=== PATIENT | female | born 1955 | race Asian ===

== ENCOUNTER 2017-11-30 09:37 | Emergency (ER) | payer BC, OTHER ==
[~2017-11-30] VITALS: Ht 152.4 cm; Wt 72.6 kg
[~2017-11-30 09:37] MED LIST: ASA81EC PO; CARBAMAZEPINE200 MG PO; CLONIDINE HCL0.1 MG PO; GLUMETZA500 MG PO; HCT25T PO; HDRL25T PO; HYDRALAZINE HCL50 MG PO; LOSARTAN POTAS100 MG PO; LOVASTATIN40 MG PO; NIFEDICAL XL30 MG PO; OLANZAPINE5 MG PO; PEPCID20 MG PO; TRANDATE100 MG PO; VENLAFAXINE HCL75 M1 PO
[2017-11-30 13:03] VITALS: BP 139/66
== END 2017-11-30 12:35 | disposition home or self-care (01) ==
LOC: FSED 09:37
DX: R06.00 Dyspnea, unspecified (principal); E11.65 Type 2 diabetes mellitus with hyperglycemia; I10 Essential (primary) hypertension; F20.9 Schizophrenia, unspecified; K21.9 Gastro-esophageal reflux disease without esophagitis; J45.909 Unspecified asthma, uncomplicated
CPT/HCPCS: 71046; 80053; 82553; 84484; 85025; 99284

== ENCOUNTER 2020-12-13 15:56 | Inpatient (IN) | payer MEDICARE, OTHER ==
[~2020-12-13] VITALS: Ht 152.4 cm; Wt 73.9 kg
[2020-12-13] MEDS ORDERED: SODIUM CHLORIDE 0.9% 1000ML 1,000 ML IV STA (16:21)
[2020-12-13] MEDS ORDERED: ONDANSETRON HCL INJ 2MG/ML 2ML 2 MG/ML VIAL IV STA (16:21)
[2020-12-13] MEDS ORDERED: MECLIZINE HCL 12.5 MG TAB PO ONE (16:30)
[2020-12-13 16:41] LABS: BASOPHILS % 0.6 % (0.0-1.0); EOSINOPHILS # (AUTO) 0.1 (0.0-0.4); EOSINOPHILS % 1.1 % (0.0-6.0); HEMATOCRIT 33.6 % (34.2-44.1); HEMOGLOBIN 12.3 g/dL (12.0-16.0); LYMPHOCYTES # (AUTO) 1.5 (1.0-3.2); LYMPHOCYTES % 27.2 % (18.0-39.1); MEAN CORPUSCULAR HEMOGLOBIN 31.9 pg (28-32); MEAN CORPUSCULAR HGB CONC 36.6 g/dL (31-35); MEAN CORPUSCULAR VOLUME 87.3 fL (81-99); MONOCYTES # (AUTO) 0.3 (0.2-0.8); MONOCYTES % 5.8 % (4.4-11.3); NEUTROPHILS # (AUTO) 3.5 (2.1-6.9); NEUTROPHILS % 64.9 % (38.7-80.0); PLATELET COUNT 216 x10e3/uL (140-360); RED BLOOD COUNT 3.85 x10e6/uL (3.6-5.1); RED CELL DISTRIBUTION WIDTH 11.7 % (11.7-14.4)
[2020-12-13 16:59] LABS: ALANINE AMINOTRANSFERASE 22 IU/L (0-55); ALBUMIN 4.5 g/dL (3.5-5.0); ALBUMIN/GLOBULIN RATIO 1.5 (0.8-2.0); ALKALINE PHOSPHATASE 49 IU/L (40-150); ANION GAP 15.8 mmol/L (8-16); BLOOD UREA NITROGEN 6 mg/dL (7-26); BUN/CREATININE RATIO 9 (6-25); CALCIUM 9.6 mg/dL (8.4-10.2); CARBON DIOXIDE 26 mmol/L (22-29); CHLORIDE 85 mmol/L (98-107); CREATINE KINASE 140 IU/L (29-168); CREATININE, SERUM 0.66 mg/dL (0.57-1.11); EST GLOMERULAR FILTRATION RATE > 60 ML/MIN (60-); GLUCOSE 113 mg/dL (74-118); POTASSIUM 3.8 mmol/L (3.5-5.1); SODIUM 123 mmol/L (136-145)
[2020-12-13 18:22] LABS: CLARITY,URINE SL CLOUDY (CLEAR); COLOR,URINE YELLOW (YELLOW); LEUKOCYTE ESTERASE ,URINE NEGATIVE (NEGATIVE); NITRITE,URINE NEGATIVE (NEGATIVE)
[2020-12-13 18:23] LABS: KETONES,URINE TRACE (NEGATIVE); PROTEIN,URINE DIPSTICK NEGATIVE (NEGATIVE); URINE UROBILINOGEN 1 mg/dL (0.2 - 1)
[2020-12-13 18:34] LABS: EPITHELIAL CELLS,URINE RARE /LPF; MUCUS,URINE FEW (RARE)
[2020-12-13] MEDS ORDERED: CARBAMAZEPINE 200 MG TAB PO SCH (19:30)
[2020-12-13] MEDS ORDERED: ASPIRIN 81 MG CHEW TAB PO ONE (19:45)
[2020-12-13] MEDS ORDERED: HYDRALAZINE HCL 25 MG TAB PO ONE (21:45)
[2020-12-13] MEDS ORDERED: LABETALOL HCL 200 MG TAB PO SCH (21:45)
[2020-12-13 22:00] VITALS: BP 173/68
[2020-12-13 22:01] VITALS: BP 173/68
[2020-12-14] VITALS (7 sets, daily range): BP systolic 149–173; BP diastolic 70–88
[2020-12-14 03:03] LABS: CREATINE KINASE MB 2.7 ng/mL (0-5.0)
[2020-12-14] MEDS ORDERED: SPIRONOLACTONE1 EACH (03:53)
[2020-12-14] MEDS ORDERED: LIPITOR20 MG PO (03:53)
[2020-12-14] MEDS ORDERED: SEROQUEL25 MG PO (03:53)
[2020-12-14] MEDS ORDERED: TRICOR48 MG PO (03:53)
[2020-12-14] MEDS ORDERED: LABETALOL HCL100 MG PO (03:53)
[2020-12-14] MEDS ORDERED: HYDRALAZINE HC100 MG PO (03:53)
[2020-12-14] MEDS ORDERED: PROAIR DIGIHAL90 MCG IH (03:53)
[2020-12-14] MEDS ORDERED: CARBAMAZEPINE200 MG PO (03:59)
[2020-12-14] MEDS ORDERED: EFFEXOR XR 3737.5 MG PO (04:02)
[2020-12-14] MEDS ORDERED: PANTOPRAZOLE SO40 MG PO (04:02)
[2020-12-14] MEDS ORDERED: IBUPROFEN200 MG PO (04:02)
[2020-12-14] MEDS ORDERED: ZAFIRLUKAST20 MG PO (04:08)
[2020-12-14] MEDS ORDERED: MULTI-VITAMIN1 EACH PO (04:08)
[2020-12-14] MEDS ORDERED: SYMBICORT 16010.2 GM INH (04:08)
[2020-12-14] MEDS ORDERED: DIOVAN160 MG PO (04:13)
[2020-12-14] MEDS ORDERED: FLONASE ALLERG9.9 ML INH (04:17)
[2020-12-14 06:05] LABS: BASOPHILS % 0.3 % (0.0-1.0); HEMATOCRIT 34.5 % (34.2-44.1); HEMOGLOBIN 12.8 g/dL (12.0-16.0); LYMPHOCYTES # (AUTO) 0.9 (1.0-3.2); LYMPHOCYTES % 14.3 % (18.0-39.1); MEAN CORPUSCULAR HEMOGLOBIN 32.6 pg (28-32); MEAN CORPUSCULAR HGB CONC 37.1 g/dL (31-35); MEAN CORPUSCULAR VOLUME 87.8 fL (81-99); MONOCYTES # (AUTO) 0.2 (0.2-0.8); MONOCYTES % 3.7 % (4.4-11.3); NEUTROPHILS # (AUTO) 5.1 (2.1-6.9); NEUTROPHILS % 81.1 % (38.7-80.0); PLATELET COUNT 244 x10e3/uL (140-360); RED BLOOD COUNT 3.93 x10e6/uL (3.6-5.1); RED CELL DISTRIBUTION WIDTH 11.4 % (11.7-14.4)
[2020-12-14 06:25] LABS: ANION GAP 16.4 mmol/L (8-16); BLOOD UREA NITROGEN 7 mg/dL (7-26); BUN/CREATININE RATIO 12 (6-25); CALCIUM 9.3 mg/dL (8.4-10.2); CARBON DIOXIDE 23 mmol/L (22-29); CHLORIDE 87 mmol/L (98-107); CREATININE, SERUM 0.57 mg/dL (0.57-1.11); EST GLOMERULAR FILTRATION RATE > 60 ML/MIN (60-); GLUCOSE 119 mg/dL (74-118); POTASSIUM 3.4 mmol/L (3.5-5.1); SODIUM 123 mmol/L (136-145)
[2020-12-14] MEDS ORDERED: DEXTROSE 50% SYRINGE 50 ML IV PRN (10:15)
[2020-12-14] MEDS ORDERED: LORAZEPAM INJ 2 MG/ML VIAL IV ONE (11:30)
[2020-12-14] MEDS: INSULIN REGULAR, HUMAN 100 UNIT/1 ML 3ML VIAL SQ SCH ×3 (11:30→21:00)
[2020-12-14] MEDS: CARBAMAZEPINE 100 MG TAB PO SCH ×2 (11:30→16:33)
[2020-12-14] MEDS: BUDESONIDE/FORMOTEROL 160/4.5MCG INHALER INH SCH ×3 (11:30→18:50)
[2020-12-14] MEDS ORDERED: GADOBENATE DIMEGLUMINE 1 ML IV ONE (11:41)
[2020-12-14] MEDS ORDERED: POTASSIUM BICARBONATE/CIT AC 20 MEQ TABLET.EFF PO ONE (12:00)
[2020-12-14 12:09] LABS: CREATINE KINASE MB 3.7 ng/mL (0-5.0)
[2020-12-14] MEDS: SODIUM CHLORIDE 0.9% 1000ML 1,000 ML IV SCH ×2 (14:16→20:00)
[2020-12-14] MEDS: LABETALOL HCL 100 MG TAB PO SCH (16:33)
[2020-12-14] MEDS: FAMOTIDINE 20 MG TAB PO SCH (16:33)
[2020-12-14] MEDS: HYDRALAZINE HCL 100 MG TABLET PO SCH (16:33)
[2020-12-14] MEDS: FLUTICASONE PROPIONATE NASAL SPRAY NS SCH (16:41)
[2020-12-14] MEDS: ATORVASTATIN 40 MG TAB PO SCH (20:59)
[2020-12-14] MEDS ORDERED: QUETIAPINE FUMARATE 25 MG TAB PO SCH (21:00)
[2020-12-14] MEDS: OLANZAPINE 5 MG TAB PO SCH (21:04)
[2020-12-15] VITALS (8 sets, daily range): BP systolic 133–178; BP diastolic 55–83
[2020-12-15] MEDS: SODIUM CHLORIDE 0.9% 1000ML 1,000 ML IV SCH ×2 (06:00→18:28)
[2020-12-15 07:17] LABS: ANION GAP 15.2 mmol/L (8-16); BLOOD UREA NITROGEN 6 mg/dL (7-26); BUN/CREATININE RATIO 10 (6-25); CARBON DIOXIDE 24 mmol/L (22-29); CHLORIDE 94 mmol/L (98-107); CREATININE, SERUM 0.62 mg/dL (0.57-1.11); EST GLOMERULAR FILTRATION RATE > 60 ML/MIN (60-); GLUCOSE 134 mg/dL (74-118); POTASSIUM 3.2 mmol/L (3.5-5.1); SODIUM 130 mmol/L (136-145)
[2020-12-15] MEDS: INSULIN REGULAR, HUMAN 100 UNIT/1 ML 3ML VIAL SQ SCH ×4 (07:30→21:00)
[2020-12-15] MEDS: HYDRALAZINE HCL 100 MG TABLET PO SCH ×2 (09:00→16:53)
[2020-12-15] MEDS: LABETALOL HCL 100 MG TAB PO SCH ×2 (09:00→16:54)
[2020-12-15] MEDS: METFORMIN HCL 500 MG TAB CR PO SCH (10:16)
[2020-12-15] MEDS: FLUTICASONE PROPIONATE NASAL SPRAY NS SCH ×2 (10:16→17:00)
[2020-12-15] MEDS: VENLAFAXINE HCL 37.5MG XR CAP PO SCH (10:17)
[2020-12-15] MEDS: NIFEDIPINE CR 30 MG TAB PO SCH (10:18)
[2020-12-15] MEDS: MULTIVITAMINS/MINERALS TAB PO SCH (10:18)
[2020-12-15] MEDS: FAMOTIDINE 20 MG TAB PO SCH ×2 (10:18→16:53)
[2020-12-15] MEDS: CARBAMAZEPINE 100 MG TAB PO SCH ×2 (10:18→16:53)
[2020-12-15] MEDS: FENOFIBRATE 48 MG TAB PO SCH (10:19)
[2020-12-15] MEDS ORDERED: POTASSIUM CHLORIDE 10MEQ EA PO ONE (13:30)
[2020-12-15] MEDS: BUDESONIDE/FORMOTEROL 160/4.5MCG INHALER INH SCH (19:00)
[2020-12-15] MEDS: OLANZAPINE 5 MG TAB PO SCH (21:01)
[2020-12-15] MEDS: ATORVASTATIN 40 MG TAB PO SCH (21:01)
[2020-12-16] VITALS: BP 161/69
[2020-12-16] MEDS: BUDESONIDE/FORMOTEROL 160/4.5MCG INHALER INH SCH (06:41)
[2020-12-16 06:56] LABS: BLOOD UREA NITROGEN 8 mg/dL (7-26); BUN/CREATININE RATIO 12 (6-25); CALCIUM 9.1 mg/dL (8.4-10.2); CARBON DIOXIDE 25 mmol/L (22-29); CHLORIDE 100 mmol/L (98-107); CREATININE, SERUM 0.68 mg/dL (0.57-1.11); EST GLOMERULAR FILTRATION RATE > 60 ML/MIN (60-); GLUCOSE 129 mg/dL (74-118); SODIUM 135 mmol/L (136-145)
[2020-12-16 08:00] VITALS: BP 186/74
[2020-12-16] MEDS: MULTIVITAMINS/MINERALS TAB PO SCH (09:19)
[2020-12-16] MEDS: FLUTICASONE PROPIONATE NASAL SPRAY NS SCH (09:19)
[2020-12-16] MEDS: METFORMIN HCL 500 MG TAB CR PO SCH (09:19)
[2020-12-16] MEDS: VENLAFAXINE HCL 37.5MG XR CAP PO SCH (09:19)
[2020-12-16] MEDS: FENOFIBRATE 48 MG TAB PO SCH (09:20)
[2020-12-16] MEDS: FAMOTIDINE 20 MG TAB PO SCH (09:20)
[2020-12-16] MEDS: CARBAMAZEPINE 100 MG TAB PO SCH (09:21)
[2020-12-16] MEDS: NIFEDIPINE CR 30 MG TAB PO SCH (09:21)
[2020-12-16] MEDS: LABETALOL HCL 100 MG TAB PO SCH (09:22)
[2020-12-16] MEDS: HYDRALAZINE HCL 100 MG TABLET PO SCH (09:22)
[2020-12-16] MEDS: INSULIN REGULAR, HUMAN 100 UNIT/1 ML 3ML VIAL SQ SCH (09:23)
[2020-12-16 10:29] VITALS: BP 186/74
[2020-12-16 12:00] VITALS: BP 139/77
[2020-12-16] MEDS ORDERED: CLONIDINE HCL 0.1 MG TAB PO ONE (12:30)
[2020-12-17] MEDS ORDERED: VALSARTAN 160 MG TAB PO SCH (09:00)
== END 2020-12-16 14:23 | disposition home or self-care (01) | DRG 641 ==
LOC: ER 16:25 → ERHOLD 20:09 → MED/SURG3 22:11
PROVIDERS: ADMIT Internal Medicine; ATTEND Internal Medicine
DX: E87.1 Hypo-osmolality and hyponatremia (principal); E87.6 Hypokalemia; I10 Essential (primary) hypertension; E78.00 Pure hypercholesterolemia, unspecified; F20.9 Schizophrenia, unspecified; F32.9 Major depressive disorder, single episode, unspecified; R42 Dizziness and giddiness; E11.9 Type 2 diabetes mellitus without complications; Z20.822 Contact with and (suspected) exposure to COVID-19
CPT/HCPCS: 36415; 70450; 70553; 80048; 80053; 81001; 82550; 82553; 82948; 84484; 85025; 99284; J2060; J2405; J7030; U0002

== ENCOUNTER 2021-07-26 11:38 | Emergency (ER) | payer MEDICARE ==
[~2021-07-26] VITALS: Ht 152.4 cm; Wt 64.4 kg
[~2021-07-26 11:38] MED LIST changes: +DIOVAN160 MG PO; +EFFEXOR XR 3737.5 MG PO; +FLONASE ALLERG9.9 ML INH; +HYDRALAZINE HC100 MG PO; +IBUPROFEN200 MG PO; +LABETALOL HCL100 MG PO; +LIPITOR20 MG PO; +MULTI-VITAMIN1 EACH PO; +PANTOPRAZOLE SO40 MG PO; +PROAIR DIGIHAL90 MCG IH; +SEROQUEL25 MG PO; +SPIRONOLACTONE1 EACH; +SYMBICORT 16010.2 GM INH; +TRICOR48 MG PO; +ZAFIRLUKAST20 MG PO
[2021-07-26] MEDS ORDERED: CASIRIVIMAB/IMDEVIMAB 10 ML in SODIUM CHLORIDE 0.9% 100 ML IV ONE (14:15)
[2021-07-26 14:55] VITALS: BP 116/86
== END 2021-07-26 15:08 | disposition home or self-care (01) ==
LOC: ER 11:55
DX: U07.1 COVID-19 (principal); R05 Cough; I10 Essential (primary) hypertension; E11.9 Type 2 diabetes mellitus without complications; E78.5 Hyperlipidemia, unspecified; J45.909 Unspecified asthma, uncomplicated; F32.3 Major depressive disorder, single episode, severe with psychotic features
CPT/HCPCS: 71045; 99283; U0002

== ENCOUNTER 2021-08-14 11:11 | Emergency (ER) | payer MEDICARE ==
[2021-08-14 11:57] LABS: BASOPHILS # (AUTO) 0.1 (0.0-0.1); BASOPHILS % 1.2 % (0.0-1.0); EOSINOPHILS # (AUTO) 0.1 (0.0-0.4); EOSINOPHILS % 2.2 % (0.0-6.0); HEMATOCRIT 33.7 % (34.2-44.1); HEMOGLOBIN 11.4 g/dL (12.0-16.0); LYMPHOCYTES # (AUTO) 1.2 (1.0-3.2); LYMPHOCYTES % 24.3 % (18.0-39.1); MEAN CORPUSCULAR HEMOGLOBIN 31.1 pg (28-32); MEAN CORPUSCULAR HGB CONC 33.8 g/dL (31-35); MEAN CORPUSCULAR VOLUME 91.8 fL (81-99); MONOCYTES # (AUTO) 0.3 (0.2-0.8); NEUTROPHILS # (AUTO) 3.4 (2.1-6.9); NEUTROPHILS % 67.1 % (38.7-80.0); PLATELET COUNT 208 x10e3/uL (140-360); RED BLOOD COUNT 3.67 x10e6/uL (3.6-5.1)
[2021-08-14 12:10] LABS: ALBUMIN 4.4 g/dL (3.5-5.0); ALBUMIN/GLOBULIN RATIO 1.5 (0.8-2.0); CREATININE, SERUM 0.77 mg/dL (0.57-1.11)
[2021-08-14 12:14] LABS: SALICYLATE < 5.0 mg/dL (0-30)
[2021-08-14 12:31] LABS: AMPHETAMINES SCREEN,URINE NEGATIVE (NEGATIVE); BENZODIAZEPINES SCREEN,URINE NEGATIVE (NEGATIVE); CLARITY,URINE CLEAR (CLEAR); COLOR,URINE YELLOW (YELLOW); KETONES,URINE NEGATIVE (NEGATIVE); LEUKOCYTE ESTERASE ,URINE NEGATIVE (NEGATIVE); NITRITE,URINE NEGATIVE (NEGATIVE); PHENCYCLIDINE SCREEN,URINE NEGATIVE (NEGATIVE); PROTEIN,URINE DIPSTICK NEGATIVE (NEGATIVE)
[2021-08-14 12:33] LABS: URINE UROBILINOGEN 0.2 mg/dL (0.2 - 1)
[2021-08-14 12:39] LABS: BACTERIA,URINE FEW /HPF; EPITHELIAL CELLS,URINE FEW /LPF; RBC,URINE 0-5 /HPF (0-5); WBC,URINE (MAN) 0-5 /HPF (0-5)
[2021-08-14 12:55] LABS: THYROID STIMULATING HORMONE 0.607 uIU/mL (0.350-4.940)
== END 2021-08-14 15:01 | disposition home or self-care (01) ==
LOC: ER 11:32
DX: F09 Unspecified mental disorder due to known physiological condition (principal); I10 Essential (primary) hypertension; E11.9 Type 2 diabetes mellitus without complications; E78.5 Hyperlipidemia, unspecified; J45.909 Unspecified asthma, uncomplicated; F32.3 Major depressive disorder, single episode, severe with psychotic features
CPT/HCPCS: 36415; 80053; 80307; 80320; 80329; 81001; 84443; 85025; 99284

== ENCOUNTER 2021-09-04 11:37 | Emergency (ER) | payer MEDICARE ==
[~2021-09-04] VITALS: Ht 152.4 cm; Wt 64.4 kg
[2021-09-04] MEDS ORDERED: SODIUM CHLORIDE 0.9% 1000ML 1,000 ML IV STA (11:57)
[2021-09-04 13:13] LABS: BASOPHILS # (AUTO) 0.1 (0.0-0.1); BASOPHILS % 0.9 % (0.0-1.0); EOSINOPHILS # (AUTO) 0.2 (0.0-0.4); EOSINOPHILS % 3.5 % (0.0-6.0); HEMATOCRIT 32.4 % (34.2-44.1); HEMOGLOBIN 10.5 g/dL (12.0-16.0); LYMPHOCYTES # (AUTO) 1.9 (1.0-3.2); MEAN CORPUSCULAR HEMOGLOBIN 30.7 pg (28-32); MEAN CORPUSCULAR HGB CONC 32.4 g/dL (31-35); MEAN CORPUSCULAR VOLUME 94.7 fL (81-99); MONOCYTES # (AUTO) 0.4 (0.2-0.8); MONOCYTES % 7.6 % (4.4-11.3); NEUTROPHILS # (AUTO) 3.2 (2.1-6.9); NEUTROPHILS % 54.7 % (38.7-80.0); PLATELET COUNT 176 x10e3/uL (140-360); RED BLOOD COUNT 3.42 x10e6/uL (3.6-5.1); RED CELL DISTRIBUTION WIDTH 12.8 % (11.7-14.4)
[2021-09-04 13:32] LABS: ALBUMIN 3.8 g/dL (3.5-5.0); ALBUMIN/GLOBULIN RATIO 1.3 (0.8-2.0); ANION GAP 17.6 mmol/L (8-16); CALCIUM 9.7 mg/dL (8.4-10.2); CREATININE, SERUM 1.11 mg/dL (0.57-1.11); POTASSIUM 4.6 mmol/L (3.5-5.1)
[2021-09-04 13:38] LABS: CREATINE KINASE MB 2.2 ng/mL (0-5.0)
[2021-09-04 15:36] VITALS: BP 106/56
== END 2021-09-04 15:20 | disposition home or self-care (01) ==
LOC: ER 11:51
DX: I95.89 Other hypotension (principal); E11.65 Type 2 diabetes mellitus with hyperglycemia; I10 Essential (primary) hypertension; E78.5 Hyperlipidemia, unspecified; F32.3 Major depressive disorder, single episode, severe with psychotic features
CPT/HCPCS: 36415; 71045; 80053; 82550; 82553; 83735; 84484; 85025; 99283; J7030

== ENCOUNTER 2021-10-24 18:31 | Emergency (ER) | payer MEDICARE ==
[~2021-10-24] VITALS: Ht 152.4 cm; Wt 64.4 kg
[2021-10-24 19:18] LABS: BASOPHILS % 0.7 % (0.0-1.0); EOSINOPHILS # (AUTO) 0.2 (0.0-0.4); EOSINOPHILS % 4.1 % (0.0-6.0); HEMATOCRIT 33.6 % (34.2-44.1); HEMOGLOBIN 11.2 g/dL (12.0-16.0); LYMPHOCYTES # (AUTO) 1.6 (1.0-3.2); LYMPHOCYTES % 28.9 % (18.0-39.1); MEAN CORPUSCULAR HEMOGLOBIN 30.8 pg (28-32); MEAN CORPUSCULAR HGB CONC 33.3 g/dL (31-35); MEAN CORPUSCULAR VOLUME 92.3 fL (81-99); MONOCYTES # (AUTO) 0.4 (0.2-0.8); MONOCYTES % 6.4 % (4.4-11.3); NEUTROPHILS # (AUTO) 3.2 (2.1-6.9); NEUTROPHILS % 59.2 % (38.7-80.0); PLATELET COUNT 182 x10e3/uL (140-360); RED BLOOD COUNT 3.64 x10e6/uL (3.6-5.1); RED CELL DISTRIBUTION WIDTH 12.5 % (11.7-14.4)
[2021-10-24 19:46] LABS: ALBUMIN/GLOBULIN RATIO 1.3 (0.8-2.0); ANION GAP 16.5 mmol/L (8-16); CALCIUM 9.8 mg/dL (8.4-10.2); CREATININE, SERUM 0.75 mg/dL (0.57-1.11); POTASSIUM 4.5 mmol/L (3.5-5.1)
== END 2021-10-24 21:23 | disposition home or self-care (01) ==
LOC: ER 18:42
DX: R07.89 Other chest pain (principal); I10 Essential (primary) hypertension; E11.65 Type 2 diabetes mellitus with hyperglycemia; J45.909 Unspecified asthma, uncomplicated; E78.5 Hyperlipidemia, unspecified; F32.3 Major depressive disorder, single episode, severe with psychotic features
CPT/HCPCS: 36415; 71045; 80053; 83880; 84484; 85025; 93005; 99284

== ENCOUNTER 2021-12-19 14:29 | Emergency (ER) | payer MEDICARE ==
[~2021-12-19] VITALS: Ht 152.4 cm; Wt 64.4 kg
[2021-12-19] MEDS ORDERED: ASPIRIN 325 MG TAB PO ONE (14:45)
[2021-12-19 14:49] LABS: BASOPHILS % 0.4 % (0.0-1.0); EOSINOPHILS # (AUTO) 0.1 (0.0-0.4); EOSINOPHILS % 1.2 % (0.0-6.0); HEMATOCRIT 31.7 % (34.2-44.1); HEMOGLOBIN 11.5 g/dL (12.0-16.0); LYMPHOCYTES # (AUTO) 1.5 (1.0-3.2); LYMPHOCYTES % 30.9 % (18.0-39.1); MEAN CORPUSCULAR HEMOGLOBIN 31.8 pg (28-32); MEAN CORPUSCULAR HGB CONC 36.3 g/dL (31-35); MEAN CORPUSCULAR VOLUME 87.6 fL (81-99); MONOCYTES # (AUTO) 0.4 (0.2-0.8); MONOCYTES % 7.6 % (4.4-11.3); NEUTROPHILS # (AUTO) 2.9 (2.1-6.9); NEUTROPHILS % 59.7 % (38.7-80.0); PLATELET COUNT 233 x10e3/uL (140-360); RED BLOOD COUNT 3.62 x10e6/uL (3.6-5.1); RED CELL DISTRIBUTION WIDTH 13.4 % (11.7-14.4)
[2021-12-19] MEDS ORDERED: NITROGLYCERIN 0.1MG/HR PATCH TOP SCH (15:00)
[2021-12-19 15:10] LABS: ALBUMIN 4.2 g/dL (3.5-5.0); ALBUMIN/GLOBULIN RATIO 1.4 (0.8-2.0); ANION GAP 17.4 mmol/L (8-16); CALCIUM 9.7 mg/dL (8.4-10.2); CREATININE, SERUM 0.75 mg/dL (0.57-1.11); POTASSIUM 3.4 mmol/L (3.5-5.1)
== END 2021-12-19 16:16 | disposition home or self-care (01) ==
LOC: ER 14:34
DX: R07.89 Other chest pain (principal); I10 Essential (primary) hypertension; E11.9 Type 2 diabetes mellitus without complications; E78.5 Hyperlipidemia, unspecified; J45.909 Unspecified asthma, uncomplicated; F32.3 Major depressive disorder, single episode, severe with psychotic features
CPT/HCPCS: 36415; 71045; 80053; 83880; 84484; 85025; 85379; 93005; 99284

== ENCOUNTER 2024-11-30 09:14 | Emergency (ER) | payer MEDICARE ==
[~2024-11-30] VITALS: Ht 152.4 cm; Wt 64.4 kg
[2024-11-30 09:20] VITALS: PULSE 58; RESP 17; TEMP 98.2; O2SAT 100
[2024-11-30 09:50] LABS: BASOPHILS % 0.6 % (0.0-1.0); EOSINOPHILS # (AUTO) 0.1 (0.0-0.4); HEMATOCRIT 37.7 % (34.2-44.1); HEMOGLOBIN 12.3 g/dL (12.0-16.0); LYMPHOCYTES # (AUTO) 1.5 (1.0-3.2); LYMPHOCYTES % 27.9 % (18.0-39.1); MEAN CORPUSCULAR HEMOGLOBIN 31.1 pg (28-32); MEAN CORPUSCULAR HGB CONC 32.6 g/dL (31-35); MEAN CORPUSCULAR VOLUME 95.4 fL (81-99); MONOCYTES # (AUTO) 0.2 (0.2-0.8); MONOCYTES % 3.9 % (4.4-11.3); NEUTROPHILS # (AUTO) 3.6 (2.1-6.9); NEUTROPHILS % 65.4 % (38.7-80.0); PLATELET COUNT 201 x10e3/uL (140-360); RED BLOOD COUNT 3.95 x10e6/uL (3.6-5.1); RED CELL DISTRIBUTION WIDTH 11.9 % (11.7-14.4); WHITE BLOOD COUNT 5.45 x10e3/uL (4.8-10.8)
[2024-11-30 10:27] LABS: ALBUMIN 4.5 g/dL (3.5-5.0); ALBUMIN/GLOBULIN RATIO 1.6 (0.8-2.0); ANION GAP 16.2 mmol/L (8-16); BILIRUBIN,TOTAL 0.8 mg/dL (0.2-1.2); CALCIUM 10.1 mg/dL (8.4-10.2); CREATININE, SERUM 0.72 mg/dL (0.57-1.11); POTASSIUM 4.2 mmol/L (3.5-5.1); TOTAL PROTEIN 7.3 g/dL (6.5-8.1)
[2024-11-30] MEDS ORDERED: IOPAMIDOL 370 MG/ML 100 ML INFUS..BTL INJ ONE (10:39)
[2024-11-30] MEDS ORDERED: ONDANSETRON ODT4 MG PO (12:39)
== END 2024-11-30 12:57 | disposition home or self-care (01) ==
LOC: ER 09:20
DX: R10.13 Epigastric pain (principal); I10 Essential (primary) hypertension; E11.9 Type 2 diabetes mellitus without complications; E78.5 Hyperlipidemia, unspecified; J45.909 Unspecified asthma, uncomplicated; F32.3 Major depressive disorder, single episode, severe with psychotic features
CPT/HCPCS: 36415; 74177; 80053; 83690; 85025; 99283; Q9967

== ENCOUNTER 2025-08-28 16:36 | Emergency (ER) | payer MEDICARE ==
[~2025-08-28] VITALS: Ht 152.4 cm; Wt 64.4 kg
[~2025-08-28 16:36] MED LIST changes: +ONDANSETRON ODT4 MG PO
[2025-08-28 16:57] VITALS: PULSE 64; RESP 16; TEMP 98.6; O2SAT 99
== END 2025-08-28 17:05 | disposition home or self-care (01) ==
LOC: ER 17:04
DX: K12.0 Recurrent oral aphthae (principal); I10 Essential (primary) hypertension; E78.5 Hyperlipidemia, unspecified; J45.909 Unspecified asthma, uncomplicated; F32.3 Major depressive disorder, single episode, severe with psychotic features
CPT/HCPCS: 99283